=== PATIENT | female | born 1960 ===

== ENCOUNTER 2020-09-21 15:15 | Emergency (ER) | payer BC, OTHER ==
[~2020-09-21] VITALS: Ht 167.6 cm; Wt 70.3 kg
[2020-09-21] MEDS ORDERED: CHLORTHALIDONE25 MG PO (16:01)
[2020-09-21] MEDS ORDERED: ECOTRIN81 MG (16:01)
== END 2020-09-21 21:02 | disposition home or self-care (01) ==
LOC: ER 15:15
DX: K30 Functional dyspepsia (principal); R07.89 Other chest pain; M62.838 Other muscle spasm; K27.9 Peptic ulcer, site unspecified, unspecified as acute or chronic, without hemorrhage or perforation